=== PATIENT | female | born 1965 | race Two or more races ===

== ENCOUNTER → 2020-04-08 | Outpatient (CLI) | payer BC ==
--- NOTE | 2020-04-08 15:22 | RADIOLOGY REPORT (SQ) ---
EXAM DESCRIPTION: MRI ABDOMEN COMBO IMAGES COMPLETED DATE/TIME: 04/08/2020 11:15 am REASON FOR STUDY: R19.09 OTHER INTRA-ABDOMINAL AND PELVIC SWELLING, MASS AND LUMP R19.09 OTHER INTR A-ABDOMINAL AND PELVIC SWELLING, MASS AND L COMPARISON: None. TECHNIQUE: Multiplanar multisequence imaging performed without and with contrast including sagittal, axial and coronal T2, axial T1, axial gradient fat sat T1, axial, sagittal and coronal fat sat T1 po st contrast. CONTRAST TYPE AND DOSE: 20 mL series 5 RENAL FUNCTION: Not indicated. ACR Type II contrast agent associated with few, if any, unconfounded cases of NSF LIMITATIONS: Motion artifact. FINDINGS: LIVER: Normal size. No masses. No dilated ducts. CBD normal. SPLEEN: Normal size. No focal lesions. PANCREAS: No masses. No adjacent inflammation or peripancreatic fluid collections. Pancreatic duct no t dilated. GALLBLADDER: No masses. No stones. No gallbladder wall thickening or pericholecystic fluid. ADRENAL GLANDS: 18 mm nodule left adrenal demonstrates signal dropout are not effaced sequence consis tent with benign adenoma. RIGHT KIDNEY AND URETER: No masses. No hydronephrosis. LEFT KIDNEY AND URETER: No masses. No hydronephrosis. AORTA AND VESSELS: No aneurysm. RETROPERITONEUM: No retroperitoneal adenopathy, hemorrhage or masses. BOWEL: No visualized masses. No inflammation. No significant dilatation. ABDOMINAL WALL AND PERITONEUM: Small fat containing umbilical hernia. BONES: No acute or significant findings. OTHER: No other significant finding. IMPRESSION: Benign left adrenal adenoma. No acute findings. TECHNICAL DOCUMENTATION: JOB ID: [id number] 2010 [employer]- All Rights Reserved Reading location - IP/workstation name: [email or web address]
== END ==
LOC: RAD 10:10
PROVIDERS: ATTEND Urology
DX: R19.09 Other intra-abdominal and pelvic swelling, mass and lump (principal)
CPT/HCPCS: 82565; 74183; A9576